=== PATIENT | female | born 2000 | race Caucasian/White ===

== ENCOUNTER 2023-04-17 17:14 | Emergency (ER) | payer BC, SELFPAY ==
[2023-04-17 17:15] VITALS: BP 116/68; PULSE 63; RESP 16; O2SAT 98
--- NOTE | 2023-04-17 17:44 | ED_ITS ---
HPI - Allergic Reaction General: Chief complaint: Allergic Reaction Stated complaint: face swelling Time Seen by Provider: 04/17/23 17:21 Source: patient Mode of arrival: ambulatory Limitations: no limitations History of Present Illness: HPI narrative: 23-year-old female states she has had up per lip swelling after eating this afternoon. She had taken a Benadryl at home with no improvement she denies any shortness of breath denies any tongue swelling states she had some hives earlier today but they have since resolved. Denies any worsening improving factors Associated symptoms: Deny abdominal pain, nausea or vomiting Review of Systems Const: Denies: fever(s) or chills Eyes: Denies: blurry vision or eye discomfort ENMT: Reports: swelling of lips/tongue; Denies: throat pain or dental pain Card: Denies: chest pain Resp: Denies: dyspnea GI: Denies: abdominal pain, nausea, vomiting or diarrhea Musc: Denies: neck pain or back pain Skin/Breast: Denies: rash Neuro: Denies: headache(s) PFSH ED PFSH: Family History Grandfather Heart disease maternal and paternal Diabetes paternal greatgrandfather Hypertension maternal Mother Thyroid disease Grandmother Thyroid disease maternal Father Hypertension Other Ovarian cancer Social History Smoking and tobacco/nicotine status: never used tobacco/nicotine Alcohol intake: never Substance/Drug Use: never Physical Exam Const: COMMON NORMALS: no acute distress, patient oriented x3 and healthy appearing HENMT: COMMON NORMALS: normocephalic and atraumatic HEAD & SCALP: normocephalic and atraumatic OTHER: upper lip swelling no tongue or throat swelling Neck/C-Spine: COMMON NORMALS: full ROM and supple Chest: COMMONS NORMALS: normal inspection of the chest Resp: COMMON NORMALS: normal respiratory effort, No retractions, No use of accessory muscles and clear to auscultation bilaterally AUSCULTATION: clear to auscultation bilaterally Cardio: COMMON NORMALS: regular rate, regular rhythm and No murmurs present (Cardio) RATE: regular rate RHYTHM: regular rhythm Extremity: COMMON NORMALS: normal to inspection and full ROM Neuro: COMMON NORMALS: patient oriented x3, moves all extremities and no focal motor deficits Psych: COMMON NORMALS: mental status grossly normal, Normal thought process present and cooperative THOUGHT PROCESS: Normal thought process present Skin: COMMON NORMALS: no rashes or lesions noted and no wounds GENERAL SKIN EXAM: no rashes or lesions noted Course Vital Signs: Vital signs: Vital Signs Pulse Rate 63 04/17/23 17:15 Respiratory Rate 16 04/17/23 17:15 Blood Pressure 116/68 04/17/23 17:15 Pulse Oximetry 98 04/17/23 17:15 Oxygen Delivery Me thod Room Air 04/17/23 17:15 MDM - Allergic Reaction Medical Decision Making Patient presents here with an allergic reaction her lip swelling here is improved she has no signs of tongue or throat involvement. Will prescribe EpiPen for home she is stable for discharge follow-up PCP return if worsening. Medical Records I reviewed the patient's medical records. No radiology studies performed this visit Discharge Plan Discharge Patient Disposition: Home Clinical Impression: Allergic reaction Qualifiers: Encounter type: initial encounter Qualified Code(s): T78.40XA - Allergy, unspecified, initial encounter Condition: Stable Prescriptions: New epinephrine [EpiPen 2-Jose Angel] 0.3 mg/0.3 mL auto-injector 0.3 mg IM Q20M PRN (Reason: anaphylaxis) Qty: 2 0RF Rx Instructions: not to exceed 6 doses per episode Discharge Orders: Discharge ED (Routine); Ordered 04/17/23 Ordered By: Lupe Barraza Referrals: Juli Fowler MD [Primary Care Provider] - 1-3 days Discharge Diet: Advance as tolerated Discharge Activity: Resume usual activity Patient Instructions: General Allergic Reaction (ED) Coding Level of Care Code ED 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
[2023-04-17] MEDS: dexamethasone 10 mg/mL INJ IM (17:58)
[2023-04-17] MEDS: EPINEPHrine 1 mg/mL INJ 0.5 MG IM (17:58)
[2023-04-17] MEDS: famotidine 20 mg/2 mL INJ 40 MG IVP (17:59)
[2023-04-17 19:23] VITALS: BP 116/68; PULSE 63; RESP 16; O2SAT 98
== END 2023-04-17 19:24 | disposition home or self-care (01) ==
PROVIDERS: Emergency Provider Emergency Medicine; PCP Pediatrics Adolescent Medicine
DX: T78.40XA Allergy, unspecified, initial encounter (principal); T78.1XXA Other adverse food reactions, not elsewhere classified, initial encounter; X58.XXXA Exposure to other specified factors, initial encounter
CPT/HCPCS: 96372; 96374; 99284; J0171; J1100; J3490

== ENCOUNTER 2023-06-25 07:02 | Emergency (ER) | payer BC, SELFPAY ==
[2023-06-25 07:12] VITALS: BP 108/78; PULSE 87; RESP 16; TEMP 36.9; O2SAT 96; BMI 28.0
--- NOTE | 2023-06-25 07:25 | W.ED.ALLEREA ---
HPI - Allergic Reaction General: Chief complaint: Allergic Reaction Stated complaint: allergic reaction Time Seen by Provider: 06/25/23 07:16 Source: patient and family Mode of arrival: ambulatory History of Present Illness: HPI narrative: This patient comes to the emergency department because of facial swelling. She noted this approximately 2 AM this morning. She took approximately 325 mg Benadryl at that time. Symptoms have not significantly worsened but they have not improved either. She has had a longstanding history of allergic hives. She has had similar facial swelling in the past. She does not have a epinephrine autoinjector at home was told that she did not need it in the past. She apparently seen an director of category management in the past and there are no known triggers or allergens discovered. She states she has not taken any medications other than her antihistamines. She has not been exposed to or has a history of food allergies. She has not recently taken any antibiotics etc. She denies any contact exposures. He is otherwise in good health. She denies any difficulty with swallowing or breathing. She has had some areas of itching and rash earlier today but none currently. She is not having any nausea vomiting abdominal cramping or pain etc. There is no family history of similar occurrences and there is no known family history of hereditary angioedema. MD complaint: facial swelling Exposure: unknown Associated symptoms: Deny abdominal pain, nausea or vomiting Review of Systems Const: Denies: fever(s) or chills Eyes: Denies: change in vision ENMT: Denies: throat pain, odynophagia, nasal discharge or nasal congestion Card: Denies: syncope or pre-syncope Resp: Denies: dyspnea or wheezing GI: Denies: abdominal pain, nausea or vomiting Musc: Denies: neck pain or back pain Skin/Breast: Reports: pruritus Neuro: Denies: headache(s), numbness in extremities or Slurred speech present Psych: Denies: anxiety PFSH ED PFSH: Family History Grandfather Heart disease maternal and paternal Diabetes paternal greatgrandfather Hypertension maternal Mother Thyroid disease Grandmother Thyroid disease maternal Father Hypertension Other Ovarian cancer Social History Smoking and tobacco/nicotine status: never used tobacco/nicotine Alcohol intake: never Substance/Drug Use: never Female Reproductive History: Date of last menstrual period: 06/06/23 Physical Exam Narrative: EXAM NARRATIVE: Patient is alert and able to answer questions in a goal-directed fashion. She has obvious right upper and lower lip swelling and some right facial swelling. Const: COMMON NORMALS: average body habitus, patient oriented x3 and alert GENERAL APPEARANCE: cooperative HENMT: COMMON NORMALS: normocephalic, atraumatic, TM's normal bilaterally, Normal external nose present, Normal nasal mucous membranes and turbinates present and oropharynx normal HEAD & SCALP: normocephalic and atraumatic FACE & SINUS: edema (Facial swelling predominantly right-sided but also some involvement of the ) on the right NOSE: Normal external nose present and Normal nasal mucous membranes and turbinates present TYMPANIC MEMBRANE: TM's normal bilaterally MOUTH: lip abnormal (Swelling of upper and lower lip predominantly on the right side of her mout); tongue not abnormal and no restricted motion THROAT: posterior oropharynx normal and uvula midline Eye: COMMON NORMALS: Equal, round and reactive pupils present, EOMs intact bilaterally and conjunctivae normal CONJUNCTIVA: Yes conjunctivae normal PUPIL: Yes Equal, round and reactive pupils present Neck/C-Spine: COMMON NORMALS: full ROM, no lymphadenopathy and supple Resp: COMMON NORMALS: normal respiratory effort, No retractions, No use of accessory muscles and clear to auscultation bilaterally AUSCULTATION: clear to auscultation bilaterally Cardio: COMMON NORMALS: regular rate, regular rhythm, No murmurs present (Cardio) and Peripheral pulses 2+ throughout RATE: regular rate RHYTHM: regular rhythm PERIPHERAL PULSES: Peripheral pulses 2+ throughout GI: COMMON NORMALS: Normal to inspection, nondistended, normoactive bowel sounds present and Soft to palpation PALPATION: Yes Soft to palpation : COMMON NORMALS: Yes no CVA tenderness BLADDER/KIDNEY EXAM: Yes no CVA tenderness Back/Pelvis: COMMON NORMALS: no CVA tenderness, thoracic and lumbar spine normal to inspection and thoraco-lumbar ROM normal Extremity: COMMON NORMALS: normal to inspection, full ROM, capillary refill normal, no calf tenderness and no pedal edema Neuro: COMMON NORMALS: patient oriented x3, moves all extremities, no focal motor deficits and no sensory deficits noted SENSORIUM/ORIENTATION: Yes alert Psych: COMMON NORMALS: mental status grossly normal Skin: COMMON NORMALS: no rashes or lesions noted, turgor normal and no petechiae GENERAL SKIN EXAM: no rashes or lesions noted and turgor normal Course Reevaluation(s): Reevaluation #1: Significant improvement in her facial swelling she still has some residual lower lip swelling but much improved. She subjectively feels much better. No evidence of swallowing difficulty, airway compromise, skin rash abdominal pain or other concerns about ongoing anaphylaxis. 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 We discussed continued home therapy as well as prescribing an EpiPen to help mitigate against future progression. All questions were answered stable for discharge at this time. Also discussed rebound phenomenon. Time: 09:04 Vital Signs: Vital signs: Vital Signs Temperature 98.4 F 06/25/23 07:12 Pulse Rate 87 06/25/23 07:12 Respiratory Rate 16 06/25/23 07:12 Blood Pressure 108/78 06/25/23 07:12 Pulse Oximetry 96 06/25/23 07:12 Oxygen Delivery Me thod Room Air 06/25/23 07:12 MDM - Allergic Reaction Medical Decision Making Patient presents to the emergency department today with a recurrence of similar facial swelling symptoms of unknown etiology but of not been attributed to hereditary angioedema by previous evaluation by director of category management and director metabolism. Patient's symptoms onset about 2 AM and were not associated with any known triggers and there have not been known triggers in the past. No difficulty breathing swallowing or abdominal associated abdominal pain. Clinical exam revealed lip and facial swelling but clear oral pharynx clear lungs and unremarkable abdominal and skin examinations. Patient was given the benefit of IV fluids, antihistamines, steroids, epinephrine. She responded well to therapy and continued to improved and remained stable throughout her emergency department stay. 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 No radiology studies performed this visit Discharge Plan Discharge Patient Disposition: Home Clinical Impression: Angioedema Qualifiers: Encounter type: initial encounter Qualified Code(s): T78.3XXA - Angioneurotic edema, initial encounter Condition: Stable Prescriptions: New epinephrine [EpiPen 2-Jose Angel] 0.3 mg/0.3 mL auto-injector 0.3 mg IM Q10M PRN (Reason: anaphylaxis) Qty: 1 2RF Rx Instructions: for 2 doses prednisone 20 mg tablet 20 mg PO BID 5 Days Qty: 10 0RF No Action epinephrine [EpiPen 2-Jose Angel] 0.3 mg/0.3 mL auto-injector 0.3 mg IM Q20M PRN (Reason: anaphylaxis) Qty: 2 0RF Rx Instructions: not to exceed 6 doses per episode Discharge Orders: Discharge ED (Routine); Ordered 06/25/23 Ordered By: Jake Kelley Referrals: Juli Fowler MD [Primary Care Provider] - Discharge Diet: Usual diet Discharge Activity: Increase activity as tolerated Patient Instructions: Opioid Safety, Pain Management Activity Restrictions/Additional Instructions: As we discussed your condition appears to be 1 notes response to his antihistamines as well as epinephrine. We recommend that you purchase [id number] strength Pepcid 10 mg tablets and take 2 tablets every 8 hours for the next 3 days during the daytime. You may add Benadryl 25 mg at nighttime to help with any additional itching or swelling. We have also prescribed prednisone to take for the next 5 days as well as a prescription for an EpiPen to use for severe swelling or symptoms such as occurred today. If you develop such symptoms that worsen you have difficulty breathing swallowing etc. you should return to the emergency department immediately. 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
[2023-06-25] MEDS: sodium chloride 0.9% 1,000 ML 999 ML IV (07:42)
[2023-06-25] MEDS: EPINEPHrine 1 mg/mL INJ 0.299999999999999989 MG IM (07:47)
[2023-06-25] MEDS: methylPREDNISolone sod succ 125 mg/2 mL INJ IVP (07:50)
[2023-06-25] MEDS: famotidine 20 mg/2 mL INJ 40 MG IVP (07:50)
== END 2023-06-25 09:27 | disposition home or self-care (01) ==
PROVIDERS: Emergency Provider Emergency Medicine; PCP Pediatrics Adolescent Medicine
DX: T78.3XXA Angioneurotic edema, initial encounter (principal); X58.XXXA Exposure to other specified factors, initial encounter
CPT/HCPCS: 96361; 96372; 96374; 96375; 99284; J0171; J2930; J3490; J7030